=== PATIENT | male | born 1960 | race Caucasian/White ===

== ENCOUNTER 2019-09-16 22:14 | Emergency (ER) | payer SELFPAY ==
[~2019-09-16] VITALS: Ht 185.4 cm; Wt 108.9 kg
[2019-09-16 22:38] VITALS: BP_SYST 97
[2019-09-17] MEDS ORDERED: LIDOCAINE/EPI 1% 1:100000 20 ML VIAL INJ ONE (03:15)
[2019-09-17] MEDS ORDERED: DIPH-TET-PERTUS Vaccine 0.5 ML VIAL (ADACEL) I.M. ONE (03:15)
[2019-09-17 04:48] VITALS: BP_SYST 125
== END 2019-09-17 04:48 | disposition home or self-care (01) ==
LOC: SED 22:14
DX: S01.01XA Laceration without foreign body of scalp, initial encounter (principal); S80.211A Abrasion, right knee, initial encounter; S80.212A Abrasion, left knee, initial encounter; S50.312A Abrasion of left elbow, initial encounter; S50.311A Abrasion of right elbow, initial encounter; Y04.0XXA Assault by unarmed brawl or fight, initial encounter; Y93.89 Activity, other specified; Y92.89 Other specified places as the place of occurrence of the external cause; Y99.8 Other external cause status
CPT/HCPCS: 70450-TC; 72125-TC; 90715; 99285

== ENCOUNTER 2019-09-21 09:06 | Emergency (ER) | payer MEDICAID ==
[~2019-09-21] VITALS: Ht 188 cm; Wt 108.9 kg
[2019-09-21 09:06] VITALS: BP_SYST 139
== END 2019-09-21 09:28 | disposition home or self-care (01) ==
LOC: SED 09:06
DX: S01.01XD Laceration without foreign body of scalp, subsequent encounter (principal); X58.XXXD Exposure to other specified factors, subsequent encounter
CPT/HCPCS: 99281

== ENCOUNTER 2019-09-27 09:28 | Emergency (ER) | payer SELFPAY ==
[~2019-09-27] VITALS: Ht 185.4 cm; Wt 111.1 kg
[2019-09-27 09:32] VITALS: BP_SYST 131
--- NOTE | 2019-09-27 09:37 | NUR ---
Patient to ER bed 07 to gown for evaluation. Side rails up.
--- NOTE | 2019-09-27 09:40 | NUR ---
Pt came to ER for staple removal on occipital region of scalp. Pt was seen in ER one week ago after trip and fall where he scraped knee and lacerated head. VSS
--- NOTE | 2019-09-27 09:45 | NUR ---
ER at bedside examining patient.
[2019-09-27 09:56] VITALS: BP_SYST 131
--- NOTE | 2019-09-27 09:56 | NUR ---
Patient given written and verbal discharge instructions and verbalizes understanding. ER MD discussed with patient the results and treatment provided. Patient in stable condition. ID arm band removed.Patient educated on pain management and to follow up with PMD. Pain Scale 0. Opportunity for questions provided and answered. Medication side effect fact sheet provided.
== END 2019-09-27 09:56 | disposition home or self-care (01) ==
LOC: SED 09:28
DX: S01.01XD Laceration without foreign body of scalp, subsequent encounter (principal); X58.XXXD Exposure to other specified factors, subsequent encounter
CPT/HCPCS: 99281

== ENCOUNTER 2022-08-30 12:33 | Inpatient (IN) | payer BC, MEDICAID ==
[~2022-08-30] VITALS: Ht 188 cm; Wt 106.6 kg
[2022-08-30 12:53] VITALS: BP_SYST 101; PULSE 107; RESP 16; TEMP 98; O2SAT 97
[2022-08-30 16:03] LABS: BILIRUBIN,URINE 1+ (NEGATIVE); BLOOD, URINE NEGATIVE (NEGATIVE); CLARITY/URINE CLEAR (CLEAR); COLOR,URINE ORANGE (YELLOW); GLUCOSE,URINE NEGATIVE (NEGATIVE); KETONES,URINE TRACE (NEGATIVE); LEUKOCYTE ESTERASE ,URINE TRACE (NEGATIVE); NITRITE, URINE POSITIVE (NEGATIVE); PH,URINE 5.5 (5.0-8.0); PROTEIN URINE TRACE (NEGATIVE)
[2022-08-30 16:07] LABS: BASOPHILS # (AUTO) 0.1 K/uL (0.0-0.2); BASOPHILS % (AUTO) 0.5 % (0.0-2.0); CALCIUM 7.4 mg/dL (8.4-11.0); CREATININE 1.23 mg/dL (0.55-1.30); HEMATOCRIT 36.1 % (36-54); HEMOGLOBIN 11.9 g/dL (14.0-18.0); LYMPHOCYTES # (AUTO) 2.3 K/uL (1.0-5.5); LYMPHOCYTES % (AUTO) 12.7 % (20.5-51.5); MEAN CORPUSCULAR HEMOGLOBIN 34 pg (27-31); MEAN CORPUSCULAR HGB CONC 33 % (32-36); MEAN CORPUSCULAR VOLUME 103 fL (79.0-98.0); MONOCYTES # (AUTO) 1.9 K/uL (0.0-1.0); MONOCYTES % (AUTO) 10.6 % (1.7-9.3); NEUTROPHILS # (AUTO) 13.8 K/uL (1.8-7.7); NEUTROPHILS % (AUTO) 76.2 % (40.0-70.0); PLATELET COUNT (AUTO) 397 K/uL (130-430); RED BLOOD CELL COUNT(AUTO) 3.49 MIL/uL (4.2-6.2); RED CELL DISTRIBUTION WIDTH 13.1 % (9.0-15.0); WHITE BLOOD COUNT (AUTO) 18.1 K/uL (4.8-10.8)
[2022-08-30 16:12] LABS: BACTERIA,URINE FEW /HPF (None Seen); RBC,URINE NONE SEEN /HPF (0-3)
[2022-08-30 16:12] LABS: TOTAL BILIRUBIN 2.1 mg/dL (0.0-1.0)
[2022-08-30] MEDS ORDERED: cefTRIAXone 1 GM IVPB PREMIX 50 ML IV ONE (17:30)
[2022-08-30] MEDS ORDERED: AZITHROMYCIN 500 MG in NS 250 ML IV ONE (17:30)
[2022-08-30] MEDS ORDERED: AZITHROMYCIN 500 MG/VIAL (ZITHROMAX) IV ONE (19:26)
[2022-08-30] MEDS ORDERED: LORazepam 2 MG/ML VIAL IVP PRN (20:45)
[2022-08-30] MEDS ORDERED: ONDANSETRON HCL 4 MG/2 ML VIAL IVP PRN (20:45)
[2022-08-30] MEDS ORDERED: ACETAMINOPHEN 325 MG TABLET PO PRN ×2 (20:45→21:00)
[2022-08-30] MEDS ORDERED: IPRATROPIUM BROM 0.5 MG/2.5 ML VIAL.NEB (ATROVENT) INH PRN (20:45)
[2022-08-30] MEDS ORDERED: NALOXONE HCL 0.4 MG/ML AMP (NARCAN) IVP PRN ×2 (20:45)
[2022-08-30] MEDS ORDERED: ALBUTEROL SULFATE 0.083% 2.5 MG/3 ML VIAL.NEB INH PRN (20:45)
[2022-08-30] MEDS ORDERED: HYDROcodone/ACETAMIN 5-325 MG TAB (NORCO/ VICODIN) PO PRN (20:45)
[2022-08-30 21:20] VITALS: BP_SYST 96; PULSE 90; RESP 20; TEMP 97.1; O2SAT 96
[2022-08-30 21:35] VITALS: BP_SYST 96; PULSE 89; RESP 20; TEMP 97.1; O2SAT 96
[2022-08-30] MEDS: NORMAL SALINE 5 ML DISP.SYRIN IVF SCH (22:08)
[2022-08-30] MEDS: HYDROcodone/ACETAMIN 10-325 MG TAB PO PRN (22:24)
[2022-08-30] MEDS ORDERED: PANTOPRAZOLE SODIUM 40 MG TAB PO ONE (23:15)
[2022-08-30] MEDS ORDERED: POTASSIUM CHLORIDE 20 MEQ TAB.PRT.SR PO ONE (23:15)
[2022-08-30] MEDS ORDERED: NS 500 ML IV ONE (23:15)
[2022-08-31] VITALS (9 sets, daily range): BP systolic 96–116; PULSE 78–93; RESP 18–20; TEMP 97.3–98.5; O2SAT 95–100
[2022-08-31] MEDS: NORMAL SALINE 5 ML DISP.SYRIN IVF SCH ×3 (05:08→21:57)
[2022-08-31 05:57] LABS: BASOPHILS # (AUTO) 0.4 K/uL (0.0-0.2); BASOPHILS % (AUTO) 2.5 % (0.0-2.0); EOSINOPHILS % (AUTO) 0.3 % (0.0-4.0); HEMOGLOBIN 10.3 g/dL (14.0-18.0); LYMPHOCYTES # (AUTO) 1.6 K/uL (1.0-5.5); MEAN CORPUSCULAR HEMOGLOBIN 35 pg (27-31); MEAN CORPUSCULAR HGB CONC 34 % (32-36); MEAN CORPUSCULAR VOLUME 102 fL (79.0-98.0); MONOCYTES % (AUTO) 7.1 % (1.7-9.3); NEUTROPHILS # (AUTO) 11.2 K/uL (1.8-7.7); NEUTROPHILS % (AUTO) 79.1 % (40.0-70.0); PLATELET COUNT (AUTO) 311 K/uL (130-430); RED BLOOD CELL COUNT(AUTO) 2.94 MIL/uL (4.2-6.2); WHITE BLOOD COUNT (AUTO) 14.2 K/uL (4.8-10.8)
[2022-08-31 06:18] LABS: ALBUMIN 1.6 g/dL (3.4-4.8); CREATININE 1.15 mg/dL (0.55-1.30); TOTAL BILIRUBIN 1.7 mg/dL (0.0-1.0)
[2022-08-31 06:22] LABS: CALCIUM 6.9 mg/dL (8.4-11.0)
[2022-08-31] MEDS ORDERED: CALCIUM GLUCONATE 2 GM in NS 100 ML IV ONE (06:45)
[2022-08-31] MEDS ORDERED: POTASSIUM CHLORIDE 20 MEQ TAB.PRT.SR PO ONE (06:45)
[2022-08-31] MEDS: PANTOPRAZOLE SODIUM 40 MG TAB PO SCH (08:30)
[2022-08-31] MEDS ORDERED: SPIRONOLACTONE 50 MG TABLET (ALDACTONE) PO ONE (10:45)
[2022-08-31] MEDS ORDERED: FUROSEMIDE 20 MG/2 ML VIAL IVP ONE (10:45)
[2022-08-31] MEDS: cefTRIAXone 1 GM IVPB PREMIX 50 ML IV SCH (16:45)
[2022-08-31] MEDS: AZITHROMYCIN 500 MG in NS 250 ML IV SCH (16:54)
[2022-09-01 00:12] VITALS: BP_SYST 111; PULSE 78; RESP 20; TEMP 97.8; O2SAT 96
[2022-09-01] MEDS: HYDROcodone/ACETAMIN 10-325 MG TAB PO PRN (00:15)
[2022-09-01 05:30] LABS: BASOPHILS # (AUTO) 0.1 K/uL (0.0-0.2); BASOPHILS % (AUTO) 0.6 % (0.0-2.0); EOSINOPHILS # (AUTO) 0.1 K/uL (0.0-0.4); EOSINOPHILS % (AUTO) 0.7 % (0.0-4.0); HEMATOCRIT 31.1 % (36-54); HEMOGLOBIN 10.5 g/dL (14.0-18.0); LYMPHOCYTES # (AUTO) 2.4 K/uL (1.0-5.5); LYMPHOCYTES % (AUTO) 18.5 % (20.5-51.5); MEAN CORPUSCULAR HEMOGLOBIN 34 pg (27-31); MEAN CORPUSCULAR HGB CONC 34 % (32-36); MEAN CORPUSCULAR VOLUME 102 fL (79.0-98.0); MONOCYTES # (AUTO) 1.3 K/uL (0.0-1.0); MONOCYTES % (AUTO) 9.8 % (1.7-9.3); NEUTROPHILS # (AUTO) 9.3 K/uL (1.8-7.7); NEUTROPHILS % (AUTO) 70.4 % (40.0-70.0); PLATELET COUNT (AUTO) 330 K/uL (130-430); RED BLOOD CELL COUNT(AUTO) 3.05 MIL/uL (4.2-6.2); RED CELL DISTRIBUTION WIDTH 12.6 % (9.0-15.0); WHITE BLOOD COUNT (AUTO) 13.2 K/uL (4.8-10.8)
[2022-09-01 05:49] LABS: INR 1.5 (0.80-1.20); PROTHROMBIN TIME 15.1 SECS (9.5-12.5)
[2022-09-01 06:36] LABS: ALBUMIN 1.8 g/dL (3.4-4.8); CALCIUM 7.1 mg/dL (8.4-11.0); CREATININE 1.35 mg/dL (0.55-1.30); TOTAL BILIRUBIN 1.5 mg/dL (0.0-1.0)
[2022-09-01] MEDS: NORMAL SALINE 5 ML DISP.SYRIN IVF SCH ×3 (06:39→20:43)
[2022-09-01 08:00] VITALS: BP_SYST 103; PULSE 80; RESP 18; TEMP 97.6; O2SAT 95
[2022-09-01] MEDS: PANTOPRAZOLE SODIUM 40 MG TAB PO SCH (09:25)
[2022-09-01] MEDS: SPIRONOLACTONE 50 MG TABLET (ALDACTONE) PO SCH (09:27)
[2022-09-01] MEDS: FUROSEMIDE 20 MG/2 ML VIAL IVP SCH (09:28)
[2022-09-01 10:56] VITALS: BP_SYST 122; PULSE 83; RESP 18; TEMP 97; O2SAT 96
[2022-09-01] MEDS ORDERED: THIAMINE HCL 100 MG TABLET GT ONE (11:00)
[2022-09-01 16:00] VITALS: BP_SYST 118; PULSE 75; RESP 18; TEMP 97.8; O2SAT 97
[2022-09-01] MEDS: cefTRIAXone 1 GM IVPB PREMIX 50 ML IV SCH (16:52)
[2022-09-01] MEDS: AZITHROMYCIN 500 MG in NS 250 ML IV SCH (16:52)
[2022-09-01] MEDS ORDERED: POTASSIUM CHLORIDE 20 MEQ TAB.PRT.SR PO ONE (19:45)
[2022-09-01 20:00] VITALS: BP_SYST 139; PULSE 104; RESP 18; TEMP 97.4; O2SAT 98
[2022-09-01 20:35] LABS: TOTAL IRON BIND. CAPACITY 67 ug/dL (250-450)
[2022-09-01] MEDS: SIMETHICONE 80 MG TAB.CHEW PO SCH (20:41)
[2022-09-01] MEDS: DOCUSATE SODIUM 100 MG CAPSULE PO SCH (20:42)
[2022-09-01] MEDS: PSYLLIUM HUSK 1 PKT PACKET PO SCH (20:43)
[2022-09-01 23:53] VITALS: O2SAT 98
[2022-09-02] VITALS: BP_SYST 126; PULSE 99; RESP 18; TEMP 96.9; O2SAT 94
[2022-09-02] MEDS: HYDROcodone/ACETAMIN 10-325 MG TAB PO PRN ×2 (00:06→22:26)
[2022-09-02 05:01] LABS: BASOPHILS % (AUTO) 0.2 % (0.0-2.0); EOSINOPHILS % (AUTO) 0.3 % (0.0-4.0); HEMOGLOBIN 10.3 g/dL (14.0-18.0); LYMPHOCYTES # (AUTO) 2.7 K/uL (1.0-5.5); LYMPHOCYTES % (AUTO) 18.9 % (20.5-51.5); MEAN CORPUSCULAR HEMOGLOBIN 35 pg (27-31); MEAN CORPUSCULAR HGB CONC 35 % (32-36); MEAN CORPUSCULAR VOLUME 101 fL (79.0-98.0); MONOCYTES # (AUTO) 1.4 K/uL (0.0-1.0); MONOCYTES % (AUTO) 9.9 % (1.7-9.3); NEUTROPHILS # (AUTO) 10.1 K/uL (1.8-7.7); NEUTROPHILS % (AUTO) 70.7 % (40.0-70.0); PLATELET COUNT (AUTO) 342 K/uL (130-430); RED BLOOD CELL COUNT(AUTO) 2.96 MIL/uL (4.2-6.2); RED CELL DISTRIBUTION WIDTH 13.1 % (9.0-15.0); WHITE BLOOD COUNT (AUTO) 14.3 K/uL (4.8-10.8)
[2022-09-02 05:34] LABS: ALBUMIN 1.7 g/dL (3.4-4.8); CREATININE 1.44 mg/dL (0.55-1.30); PHOSPHORUS 2.4 mg/dL (2.7-4.5); TOTAL BILIRUBIN 1.3 mg/dL (0.0-1.0)
[2022-09-02 05:46] LABS: CALCIUM 6.8 mg/dL (8.4-11.0)
[2022-09-02] MEDS: NORMAL SALINE 5 ML DISP.SYRIN IVF SCH ×2 (06:07→14:00)
[2022-09-02] MEDS ORDERED: CALCIUM GLUCONATE 2 GM in NS 100 ML IV ONE (06:15)
[2022-09-02 07:33] VITALS: O2SAT 97
[2022-09-02 08:00] VITALS: BP_SYST 117; PULSE 87; RESP 16; TEMP 97.6; O2SAT 97
[2022-09-02 08:07] LABS: AFP, TUMOR MARKER 2.8 ng/mL (0.0-8.4); ALPHA-1-ANTITRYPSIN, S 193 mg/dL (101-187)
[2022-09-02] MEDS: THIAMINE HCL 100 MG TABLET GT SCH (08:56)
[2022-09-02] MEDS: PANTOPRAZOLE SODIUM 40 MG TAB PO SCH (08:56)
[2022-09-02] MEDS: SPIRONOLACTONE 50 MG TABLET (ALDACTONE) PO SCH (08:56)
[2022-09-02] MEDS: SIMETHICONE 80 MG TAB.CHEW PO SCH ×3 (08:56→21:23)
[2022-09-02] MEDS: PSYLLIUM HUSK 1 PKT PACKET PO SCH ×3 (08:57→21:28)
[2022-09-02] MEDS: DOCUSATE SODIUM 100 MG CAPSULE PO SCH ×2 (08:57→21:23)
[2022-09-02] MEDS: FUROSEMIDE 20 MG/2 ML VIAL IVP SCH (08:58)
[2022-09-02] MEDS: TAMSULOSIN HCL 0.4 MG CAP PO SCH (09:50)
[2022-09-02] MEDS ORDERED: NA PHOS 30 MM in NS 250 ML IV ONE (10:45)
[2022-09-02 12:00] VITALS: BP_SYST 119; PULSE 86; RESP 18; TEMP 98; O2SAT 99
[2022-09-02 12:06] LABS: HEPATITIS A AB, IgM Negative (Negative); HEPATITIS B CORE AB, IgM Positive (Negative); HEPATITIS B SURFACE AG Negative (Negative)
[2022-09-02 16:00] VITALS: BP_SYST 110; PULSE 93; RESP 20; TEMP 98; O2SAT 99
[2022-09-02] MEDS: cefTRIAXone 1 GM IVPB PREMIX 50 ML IV SCH (18:35)
[2022-09-02] MEDS: AZITHROMYCIN 500 MG in NS 250 ML IV SCH (19:18)
[2022-09-02 20:00] VITALS: BP_SYST 113; BP_SYST 144; PULSE 49; PULSE 94; RESP 18; RESP 20; TEMP 98.1; TEMP 98.6; O2SAT 97
[2022-09-03] VITALS (10 sets, daily range): BP systolic 97–117; PULSE 65–100; RESP 14–18; TEMP 96.4–98; O2SAT 94–99
[2022-09-03] MEDS: NORMAL SALINE 5 ML DISP.SYRIN IVF SCH ×4 (02:08→22:23)
[2022-09-03 05:56] LABS: BASOPHILS # (AUTO) 0.1 K/uL (0.0-0.2); BASOPHILS % (AUTO) 0.6 % (0.0-2.0); EOSINOPHILS # (AUTO) 0.2 K/uL (0.0-0.4); EOSINOPHILS % (AUTO) 1.6 % (0.0-4.0); HEMATOCRIT 29.8 % (36-54); HEMOGLOBIN 10.3 g/dL (14.0-18.0); LYMPHOCYTES # (AUTO) 2.3 K/uL (1.0-5.5); MEAN CORPUSCULAR HEMOGLOBIN 35 pg (27-31); MEAN CORPUSCULAR HGB CONC 35 % (32-36); MEAN CORPUSCULAR VOLUME 101 fL (79.0-98.0); MONOCYTES # (AUTO) 1.2 K/uL (0.0-1.0); MONOCYTES % (AUTO) 11.5 % (1.7-9.3); NEUTROPHILS # (AUTO) 6.4 K/uL (1.8-7.7); NEUTROPHILS % (AUTO) 63.3 % (40.0-70.0); PLATELET COUNT (AUTO) 319 K/uL (130-430); RED BLOOD CELL COUNT(AUTO) 2.95 MIL/uL (4.2-6.2); WHITE BLOOD COUNT (AUTO) 10.1 K/uL (4.8-10.8)
[2022-09-03 06:31] LABS: CALCIUM 7.1 mg/dL (8.4-11.0); CREATININE 1.56 mg/dL (0.55-1.30); PHOSPHORUS 3.9 mg/dL (2.7-4.5)
[2022-09-03 07:01] LABS: ERYTHROCYTE SEDIMENTATION RATE 37 MM/HR (0-15)
[2022-09-03] MEDS ORDERED: POTASSIUM CHLORIDE 20 MEQ TAB.PRT.SR PO ONE (08:00)
[2022-09-03] MEDS: PANTOPRAZOLE SODIUM 40 MG TAB PO SCH (09:26)
[2022-09-03] MEDS: DOCUSATE SODIUM 100 MG CAPSULE PO SCH ×2 (09:26→22:22)
[2022-09-03] MEDS: TAMSULOSIN HCL 0.4 MG CAP PO SCH (09:26)
[2022-09-03] MEDS: THIAMINE HCL 100 MG TABLET GT SCH (09:26)
[2022-09-03] MEDS: SIMETHICONE 80 MG TAB.CHEW PO SCH ×3 (09:27→22:22)
[2022-09-03] MEDS: PSYLLIUM HUSK 1 PKT PACKET PO SCH ×3 (09:28→22:23)
[2022-09-03 12:07] LABS: FOLATE (FOLIC ACID) 7.8 ng/mL (>3.0)
[2022-09-03] MEDS: cefTRIAXone 1 GM IVPB PREMIX 50 ML IV SCH (16:04)
[2022-09-03] MEDS: AZITHROMYCIN 500 MG in NS 250 ML IV SCH (17:01)
[2022-09-03] MEDS: HYDROcodone/ACETAMIN 10-325 MG TAB PO PRN (23:03)
[2022-09-04] VITALS (8 sets, daily range): BP systolic 105–121; PULSE 79–100; RESP 15–18; TEMP 96.8–97.6; O2SAT 96–99
[2022-09-04] MEDS: NORMAL SALINE 5 ML DISP.SYRIN IVF SCH ×3 (06:00→22:00)
[2022-09-04 06:07] LABS: BASOPHILS # (AUTO) 0.1 K/uL (0.0-0.2); BASOPHILS % (AUTO) 0.8 % (0.0-2.0); EOSINOPHILS # (AUTO) 0.2 K/uL (0.0-0.4); EOSINOPHILS % (AUTO) 2.3 % (0.0-4.0); HEMATOCRIT 28.9 % (36-54); HEMOGLOBIN 10.1 g/dL (14.0-18.0); LYMPHOCYTES # (AUTO) 2.1 K/uL (1.0-5.5); LYMPHOCYTES % (AUTO) 22.8 % (20.5-51.5); MEAN CORPUSCULAR HEMOGLOBIN 35 pg (27-31); MEAN CORPUSCULAR HGB CONC 35 % (32-36); MEAN CORPUSCULAR VOLUME 101 fL (79.0-98.0); NEUTROPHILS # (AUTO) 5.9 K/uL (1.8-7.7); NEUTROPHILS % (AUTO) 63.1 % (40.0-70.0); PLATELET COUNT (AUTO) 327 K/uL (130-430); RED BLOOD CELL COUNT(AUTO) 2.87 MIL/uL (4.2-6.2); RED CELL DISTRIBUTION WIDTH 13.1 % (9.0-15.0); WHITE BLOOD COUNT (AUTO) 9.3 K/uL (4.8-10.8)
[2022-09-04 06:44] LABS: CREATININE 1.32 mg/dL (0.55-1.30)
[2022-09-04 06:47] LABS: ERYTHROCYTE SEDIMENTATION RATE 44 MM/HR (0-15)
[2022-09-04 07:07] LABS: CALCIUM 6.9 mg/dL (8.4-11.0)
[2022-09-04] MEDS ORDERED: CALCIUM GLUC 2 GM/100ML-NACL 100 ML IV ONE (08:00)
[2022-09-04] MEDS ORDERED: CALCIUM GLUCONATE 2 GM in NS 100 ML IV ONE (08:00)
[2022-09-04 09:07] LABS: ANTI-SMOOTH MUSCLE AB 19 Units (0-19)
[2022-09-04] MEDS ORDERED: POTASSIUM CHLORIDE 20 MEQ TAB.PRT.SR PO ONE (09:30)
[2022-09-04] MEDS: PSYLLIUM HUSK 1 PKT PACKET PO SCH ×3 (09:32→20:46)
[2022-09-04] MEDS: SIMETHICONE 80 MG TAB.CHEW PO SCH ×3 (09:33→20:45)
[2022-09-04] MEDS: PANTOPRAZOLE SODIUM 40 MG TAB PO SCH (09:33)
[2022-09-04] MEDS: DOCUSATE SODIUM 100 MG CAPSULE PO SCH ×2 (09:33→20:45)
[2022-09-04] MEDS: TAMSULOSIN HCL 0.4 MG CAP PO SCH (09:33)
[2022-09-04] MEDS: THIAMINE HCL 100 MG TABLET GT SCH (09:33)
[2022-09-04] MEDS: NACL 0.9% 1,000 ML IV SCH ×2 (11:57→20:49)
[2022-09-04] MEDS: cefTRIAXone 1 GM IVPB PREMIX 50 ML IV SCH (16:21)
[2022-09-04] MEDS: AZITHROMYCIN 500 MG in NS 250 ML IV SCH (17:14)
[2022-09-04] MEDS: HYDROcodone/ACETAMIN 10-325 MG TAB PO PRN (21:57)
[2022-09-05 00:20] VITALS: BP_SYST 99; PULSE 100; RESP 18; TEMP 96.6; O2SAT 98
[2022-09-05 05:29] LABS: ERYTHROCYTE SEDIMENTATION RATE 20 MM/HR (0-15)
[2022-09-05 05:32] LABS: BASOPHILS # (AUTO) 0.1 K/uL (0.0-0.2); BASOPHILS % (AUTO) 0.8 % (0.0-2.0); EOSINOPHILS # (AUTO) 0.3 K/uL (0.0-0.4); EOSINOPHILS % (AUTO) 3.3 % (0.0-4.0); HEMATOCRIT 29.6 % (36-54); HEMOGLOBIN 10.3 g/dL (14.0-18.0); LYMPHOCYTES % (AUTO) 25.4 % (20.5-51.5); MEAN CORPUSCULAR HEMOGLOBIN 35 pg (27-31); MEAN CORPUSCULAR HGB CONC 35 % (32-36); MEAN CORPUSCULAR VOLUME 101 fL (79.0-98.0); MONOCYTES # (AUTO) 0.8 K/uL (0.0-1.0); MONOCYTES % (AUTO) 10.6 % (1.7-9.3); NEUTROPHILS # (AUTO) 4.8 K/uL (1.8-7.7); NEUTROPHILS % (AUTO) 59.9 % (40.0-70.0); PLATELET COUNT (AUTO) 340 K/uL (130-430); RED BLOOD CELL COUNT(AUTO) 2.94 MIL/uL (4.2-6.2); RED CELL DISTRIBUTION WIDTH 13.2 % (9.0-15.0)
[2022-09-05 06:12] LABS: ALBUMIN 1.7 g/dL (3.4-4.8); CALCIUM 7.1 mg/dL (8.4-11.0); CREATININE 1.29 mg/dL (0.55-1.30); PHOSPHORUS 3.2 mg/dL (2.7-4.5)
[2022-09-05] MEDS: NORMAL SALINE 5 ML DISP.SYRIN IVF SCH ×3 (07:19→21:33)
[2022-09-05 08:00] VITALS: BP_SYST 106; PULSE 88; RESP 18; TEMP 96.7; O2SAT 88
[2022-09-05] MEDS ORDERED: POTASSIUM CHLORIDE 20 MEQ TAB.PRT.SR PO ONE (08:00)
[2022-09-05] MEDS: TAMSULOSIN HCL 0.4 MG CAP PO SCH (10:29)
[2022-09-05] MEDS: THIAMINE HCL 100 MG TABLET GT SCH (10:30)
[2022-09-05] MEDS: DOCUSATE SODIUM 100 MG CAPSULE PO SCH ×2 (10:30→21:32)
[2022-09-05] MEDS: PANTOPRAZOLE SODIUM 40 MG TAB PO SCH (10:31)
[2022-09-05] MEDS: PSYLLIUM HUSK 1 PKT PACKET PO SCH ×3 (10:32→21:32)
[2022-09-05] MEDS: SIMETHICONE 80 MG TAB.CHEW PO SCH ×3 (10:34→21:32)
[2022-09-05] MEDS: NACL 0.9% 1,000 ML IV SCH (10:36)
[2022-09-05 11:37] VITALS: BP_SYST 114; PULSE 91; RESP 18; TEMP 97.6; O2SAT 95
[2022-09-05] MEDS: HYDROcodone/ACETAMIN 10-325 MG TAB PO PRN ×2 (13:19→21:36)
[2022-09-05 17:18] VITALS: BP_SYST 116; PULSE 80; RESP 18; TEMP 98; O2SAT 94
[2022-09-05 20:00] VITALS: BP_SYST 114; PULSE 99; RESP 17; TEMP 97.6; O2SAT 99
[2022-09-06] VITALS (7 sets, daily range): BP systolic 96–131; PULSE 84–96; RESP 16–20; TEMP 96–98; O2SAT 97–99
[2022-09-06] MEDS: NACL 0.9% 1,000 ML IV SCH (04:00)
[2022-09-06] MEDS: NORMAL SALINE 5 ML DISP.SYRIN IVF SCH ×2 (06:40→18:18)
[2022-09-06] MEDS: THIAMINE HCL 100 MG TABLET GT SCH (10:00)
[2022-09-06] MEDS: SIMETHICONE 80 MG TAB.CHEW PO SCH (10:00)
[2022-09-06] MEDS: PANTOPRAZOLE SODIUM 40 MG TAB PO SCH (10:01)
[2022-09-06] MEDS: DOCUSATE SODIUM 100 MG CAPSULE PO SCH (10:01)
[2022-09-06] MEDS: HYDROcodone/ACETAMIN 10-325 MG TAB PO PRN (10:03)
[2022-09-06] MEDS: TAMSULOSIN HCL 0.4 MG CAP PO SCH (10:04)
[2022-09-06] MEDS: PSYLLIUM HUSK 1 PKT PACKET PO SCH (10:05)
[2022-09-06 13:06] LABS: HEPATITIS Be AG Negative (Negative)
[2022-09-06] MEDS ORDERED: KCL 20 mEq in 100 mL (PREMIX) 100 ML IV SCH (18:45)
== END 2022-09-06 17:30 | disposition home health service (06) | DRG 871 ==
LOC: SED 12:33 → STU 17:46 → SMU 09-01 15:58
PROVIDERS: ADMIT Preventive Medicine Preventive Medicine/Occupational Environmental Medicine; ATTEND Preventive Medicine Preventive Medicine/Occupational Environmental Medicine
DX: A41.9 Sepsis, unspecified organism (principal); G93.41 Metabolic encephalopathy; J18.9 Pneumonia, unspecified organism; E87.1 Hypo-osmolality and hyponatremia; N39.0 Urinary tract infection, site not specified; K21.9 Gastro-esophageal reflux disease without esophagitis; E78.5 Hyperlipidemia, unspecified; F10.10 Alcohol abuse, uncomplicated; Y90.9 Presence of alcohol in blood, level not specified; E87.6 Hypokalemia; E83.52 Hypercalcemia; K59.00 Constipation, unspecified; E83.51 Hypocalcemia; K70.31 Alcoholic cirrhosis of liver with ascites; E83.39 Other disorders of phosphorus metabolism; G62.9 Polyneuropathy, unspecified; D64.9 Anemia, unspecified; E88.09 Other disorders of plasma-protein metabolism, not elsewhere classified
CPT/HCPCS: 36415; 71045; 76376; 76700-TC; 80048; 80053; 80074; 81000; 82103; 82105; 82140; 82607; 82746; 82977; 83516; 83540; 83550; 83735; 84100; 85025; 85610-TC; 85651-TC; 85730-TC; 86038; 86706; 86738; 87040; 87086; 87350; 94760; 96365; 96367; 97110-GP; 97116-GP; 97163-GP; 97530-GP; 99285; G0378; J0456; J0610; J0696; J1940; J7030; J7040; J7042; J7050